=== PATIENT | female | born 1990 | race African-American/Black ===

== ENCOUNTER 2017-03-19 13:06 | Emergency (ER) | payer MEDICAID ==
[~2017-03-19] VITALS: Ht 160 cm; Wt 70.0 kg
[2017-03-19] MEDS ORDERED: LORAZEPAM 1MG TABLET PO ONE (15:30)
[2017-03-19 16:01] VITALS: BP 143/81
== END 2017-03-19 18:12 | disposition home or self-care (01) ==
LOC: ER 13:28
DX: F41.9 Anxiety disorder, unspecified (principal)
CPT/HCPCS: 71010; 81025; 93005; 99284; Z7610